=== PATIENT | female | born 2000 | race Caucasian/White ===

== ENCOUNTER 2022-05-23 14:19 | Emergency (ER) | payer OTHER ==
[2022-05-23 14:26] VITALS: BP 119/81; PULSE 92; RESP 19; TEMP 97.8; BMI 39.1
== END 2022-05-23 17:30 | disposition home or self-care (01) ==
LOC: JERFT 14:19
DX: L50.9 Urticaria, unspecified (principal)
CPT/HCPCS: 99283-25

== ENCOUNTER 2023-05-28 17:30 | Emergency (ER) | payer OTHER ==
[2023-05-28 17:39] VITALS: BP 120/84; PULSE 78; RESP 16; TEMP 98.2; BMI 37.1
== END 2023-05-28 21:12 | disposition home or self-care (01) ==
LOC: JER 17:30
DX: S80.11XA Contusion of right lower leg, initial encounter (principal); X58.XXXA Exposure to other specified factors, initial encounter
CPT/HCPCS: 93970-TC; 99284-25